=== PATIENT | female | born 1995 | race Caucasian/White ===

== ENCOUNTER 2017-09-01 01:08 | Emergency (ER) | payer MEDICAID ==
[~2017-09-01] VITALS: Ht 157.5 cm; Wt 56.0 kg
[~2017-09-01 01:08] MED LIST: IBUP-232 PO; OXYC1TAB63 PO; PREN29TA PO
[2017-09-01 01:17] VITALS: BP 102/56; PULSE 162; RESP 26; TEMP 97.2; O2SAT 97
[2017-09-01 01:30] VITALS: O2SAT 97
[2017-09-01] MEDS ORDERED: RANITIDINE HCL SYRUP 150 MG/10 ML UDC PO ONE (01:30)
[2017-09-01] MEDS ORDERED: methylPREDNISolone SOD SUCC 125 MG/2 ML VIAL IV PUSH ONE (01:30)
[2017-09-01] MEDS ORDERED: SODIUM CHLORIDE 0.9% FLUSH 10 ML FLUSH IV FLUSH PRN (01:30)
[2017-09-01] MEDS ORDERED: diphenhydrAMINE HCL 50 MG/ML VIAL IVP ONE (01:30)
[2017-09-01] MEDS ORDERED: EPINEPHrine HCL (1:1000) 1 MG/ML VIAL IM ONE (01:30)
[2017-09-01 01:35] VITALS: BP 112/82
--- NOTE | 2017-09-01 01:36 | PD ---
HPI Chief Complaint: Allergic/Adverse Reaction Time Seen by Provider: 01:27 Travel History International Travel<30 days: No Contact w/Intl Traveler<30days: No Traveled to known affect area: No History of Present Illness HPI 22-year-old female complains of itching rash all over the body. Patient states that the symptoms started right before she came to the emergency room. 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 Patient states that she has started breaking out with a rash after drinking some fluid this evening. Patient states that she has itching all over the body. Patient denies any headache. Patient denies any problems swallowing. Patient states that she has shortness of breath. Patient denies any chest pain. Patient denies abdominal pain. Patient denies any chance of being . PFSH Past Medical History Autoimmune Disease: No Blood Disorders: No Cardiovascular Problems: No Diminished Hearing: No Gastrointestinal Disorders: No Genitourinary: No Musculoskeletal: No Neurologic: No Psychiatric: No Respiratory: No Influenza Vaccination: No ?: Not : 2 Para: 2 Past Surgical History Section: Yes Other Surgery: No Social History Alcohol Use: No Tobacco Use: No Substance Use: No Allergies-Medications (Allergen,Severity, Reaction): Uncoded Allergies: CITRUS (Allergy, Severe, 03/17/16) Reported Meds & Prescriptions Reported Meds & Active Scripts Active No Active Prescriptions or Reported Medications Review of Systems General / Constitutional: No: Fever Eyes: No: Visual changes HENT: No: Headaches Cardiovascular: No: Chest Pain or Discomfort Respiratory: No: Shortness of Breath Gastrointestinal: No: Abdominal Pain Genitourinary: No: Dysuria Musculoskeletal: No: Pain Skin: Positive Rash, Positive Itching Neurologic: No: Weakness Psychiatric: No: Depression Endocrine: No: Polydipsia Hematologic/Lymphatic: No: Easy Bruising Physical Exam Narrative GENERAL: Well-nourished, well-developed patient. SKIN: Focused skin assessment warm/dry. Patient has hives over the face, trunk , extremity. HEAD: Normocephalic. EYES: No scleral icterus. No injection or drainage. Throat: No edema noted. NECK: Supple, trachea midline. No JVD or lymphadenopathy. CARDIOVASCULAR: Mild tachycardia rate and rhythm without murmurs, gallops, or rubs. RESPIRATORY: Breath sounds equal bilaterally. No accessory muscle use. No stridor or wheezes. GASTROINTESTINAL: Abdomen soft, non-tender, nondistended. MUSCULOSKELETAL: No cyanosis, or edema. BACK: Nontender without obvious deformity. No CVA tenderness. Neurologic exam normal. Data Data Last Documented VS Vital Signs Date Time Temp Pulse Resp B/P (MAP) Pulse Ox O2 Delivery O2 Flow Rate FiO2 09/01/17 02:26 117 97 09/01/17 01:35 112/82 09/01/17 01:30 Room Air 09/01/17 01:17 97.2 26 Orders Orders Ecg Monitoring (09/01/17 01:27) Iv Access Insert/Monitor (09/01/17 01:27) Oximetry (09/01/17 01:27) Diphenhydramine Inj (Benadryl Inj) (09/01/17 01:30) Methylprednisolone So Succ Inj (Solumedr (09/01/17 01:30) Sodium Chloride 0.9% Flush (Ns Flush) (09/01/17 01:30) Epinephrine (1:1000) Inj (Adrenalin (1:1 (09/01/17 01:30) Ranitidine Liq (Zantac Liq) (09/01/17 01:30) MDM Medical Decision Making Medical Screen Exam Complete: Yes Emergency Medical Condition: Yes Differential Diagnosis Differential diagnosis including allergic reaction. Narrative Course 22-year-old female with allergic reaction. Patient has hives and itching rash all over the body. Epinephrine 0.3 mg IM. Benadryl 25 mg IV. Solu-Medrol 1.5 mg IV. Zantac 300 mg p.o. to 50 7 AM. Reexamination patient is feeling much better. Rash resolving. Diagnosis Primary Impression: Allergic reaction Qualified Codes: T78.40XA - Allergy, unspecified, initial encounter Patient Instructions: General Instructions Additional Instructions: Take medications as directed. Follow-up with personal physician. Return immediately if unable to swallow, shortness of breath, chest pain. Med/Other Pt SpecificInfo: Prescription(s) given Scripts Ranitidine (Zantac) 300 Mg Tab 300 MG PO DAILY, #10 TAB 0 Refills Prov: Augie Chin MD 09/01/17 Cetirizine HCl (Zyrtec) 10 Mg Capsule 1 TAB PO DAILY, #10 Prov: Augie Chin MD 09/01/17 Prednisone (Prednisone) 20 Mg Tab 20 MG PO BID, #10 TAB 0 Refills Prov: Augie Chin MD 09/01/17 Epinephrine Inj (Epipen 2-José Miguel Inj) 0.3 Mg/0.3 Ml Pfpen 0.3 MG IM ONCE Y for ALLERGIC REACTION, #1 PACK 0 Refills Prov: Augie Chin MD 09/01/17 Disposition: 01 DISCHARGE HOME Condition: Stable Augie Chin MD September 01, 2017 01:36
[2017-09-01 02:26] VITALS: PULSE 117; O2SAT 97
[2017-09-01] MEDS ORDERED: EPIP0.3I IM (03:02)
[2017-09-01] MEDS ORDERED: PRED20 PO (03:02)
[2017-09-01] MEDS ORDERED: ZANT300T PO (03:02)
[2017-09-01] MEDS ORDERED: CETI10CA3 PO (03:02)
--- NOTE | 2017-09-01 12:26 | EKG ---
Date Performed: 09/01/2017 Time Performed: 01:38:05 PTAGE: 22 years EKG: SINUS TACHYCARDIA WITH SHORT CO INTERVAL, POSSIBLE ATRIAL FLUTTER INDETERMINATE AXIS POSSIB LE RIGHT VENTRICULAR CONDUCTION DELAY ABNORMAL RHYTHM ECG NO PREVIOUS TRACING DOCTOR: Wali Menon Interpretating Date/Time 09/01/2017 12:22:51
== END 2017-09-01 03:35 | disposition home or self-care (01) ==
LOC: NEPC 01:08
DX: T78.40XA Allergy, unspecified, initial encounter (principal)
CPT/HCPCS: 93005; 96372; 96374; 96375; 99284; J0171; J1200; J2930